=== PATIENT | female | born 1995 | race Caucasian/White ===

== ENCOUNTER → 2017-03-08 | Outpatient (CLI) | payer OTHER ==
[2017-03-08 18:38] LABS: BASO % 0.3 % (0.0-1.0); EOS % 0.6 % (0.0-3.0); LARGE UNSTAINED CELL # 0.1 K/mm3 (0.0-0.4); LARGE UNSTAINED CELL % 1.5 % (0.0-4.0); LYMPH % 29.9 % (24.0-44.0); MEAN CORPUSCULAR HGB CONC 32.9 g/dl (32.0-36.5); MEAN CORPUSCULAR VOLUME 91.2 fl (80.0-96.0); MONO # 0.5 K/mm3 (0.0-0.8); MONO % 7.9 % (0.0-5.0); NEUTROPHILS # 3.9 K/mm3 (1.8-7.7); NEUTROPHILS % 59.8 % (36.0-66.0); PLATELET COUNT, AUTOMATED 229 k/mm3 (150-450); RED CELL DISTRIBUTION WIDTH 13.1 % (11.5-14.5); WHITE BLOOD COUNT 6.5 K/mm3 (4.0-10.0)
[2017-03-10 11:17] LABS: HBsAg Prenatal NEGATIVE (NEGATIVE)
== END ==
LOC: M SMT 13:46
PROVIDERS: ATTEND Obstetrics & Gynecology
DX: Z34.81 Encounter for supervision of other normal pregnancy, first trimester (principal); Z36 Encounter for antenatal screening of mother; Z3A.00 Weeks of gestation of pregnancy not specified

== ENCOUNTER → 2017-05-28 | Outpatient (CLI) | payer OTHER ==
--- NOTE | 2017-05-28 16:11 | REP ---
COMPLETE OB ULTRASOUND WITH DETAILED ANATOMY SCREEN: 05/28/2017. CLINICAL HISTORY: Supervision of , normal second trimester, anatomy screen. FINDINGS: No comparison study available. By reported LMP she is 18 weeks 3 days, EDC 10/26/2017. There is a single intrauterine gestation in vertex presentation. Cervix is 3.6 cm long and closed. Amniotic fluid volume is visually normal. There is a posterior grade 0 placenta without previa or abruption. Biometry: BPD 4.3 cm 19 weeksHC 16.2 cm 19 weeksAC 13.3 cm 19 weeksFL 2.9 cm 19 weeksHL 2.8 cm 18 weeks 6 days This gives average ultrasound age 19 weeks, EDC 10/22/2017. Estimated weight 269 grams or 9 ounces, which is 70th percentile for dating based on LMP. This is normal interval growth. anatomy screen: Cranial vault was intact. Lateral ventricles are 9 mm in diameter, upper limits of normal. There are small bilateral choroid plexus cysts. The thalami, cavum septum pellucidum, cerebellum and cisterna magna, face and profile views, lungs, four-chamber view and the left ventricular outflow tract were unremarkable. The right ventricular outflow tract is not well defined due to position. There is a left-sided stomach bubble. Three-vessel cord and the cord insertion were normal. kidneys and bladder, transverse and longitudinal views of the spine and the upper and lower extremities were unremarkable. In the maternal right adnexa is a 3.3 cm mixed hyper- and hypoechoic lesion in this patient with a known fatty lesion by previous CT and MRI in the right ovary, and most consistent with dermoid. Impression: 1. Single intrauterine gestation in vertex presentation at 19 weeks by average ultrasound age, 18 weeks 3 days by LMP with EDC 10/26/2017. Normal interval growth. 2. Closed 3.6 cm long cervix, visually normal amniotic fluid volume and a posterior grade 0 placenta without previa abruption. 3. Borderline ventricular size but with bilateral choroid plexus cysts. This should be rechecked later in the second trimester. The right ventricular outflow tract could not be completely defined due to position. The anatomy screen is otherwise normal. 4. The maternal right ovary has a 3.3 cm complex lesion most consistent with ovarian dermoid that has been seen and evaluated by CT and MRI previously. Signed by Linwood Song MD 05/28/2017 05:09 P
== END ==
LOC: M RAD 14:08
PROVIDERS: ATTEND Obstetrics & Gynecology
DX: O36.8920 Maternal care for other specified fetal problems, second trimester, not applicable or unspecified (principal); Z36 Encounter for antenatal screening of mother; Z3A.19 19 weeks gestation of pregnancy

== ENCOUNTER → 2017-06-28 | Outpatient (CLI) | payer OTHER | LOC: M LAB 11:13 | PROVIDERS: ATTEND Advanced Practice Midwife | DX: O28.5 Abnormal chromosomal and genetic finding on antenatal screening of mother (principal); Z3A.00 Weeks of gestation of pregnancy not specified ==

== ENCOUNTER → 2017-08-04 | Outpatient (CLI) | payer OTHER ==
[2017-08-04 17:56] LABS: BASO % 0.2 % (0.0-1.0); EOS % 0.2 % (0.0-3.0); IMMATURE GRANULOCYTE % 0.7 % (0-0); LYMPH # 1.8 10^3/uL (1.5-6.5); LYMPH % 19.9 % (24.0-44.0); MEAN CORPUSCULAR HEMOGLOBIN 29.9 pg (27.0-33.0); MEAN CORPUSCULAR HGB CONC 33.2 g/dl (32.0-36.5); MEAN CORPUSCULAR VOLUME 89.9 fl (80.0-96.0); MONO # 0.6 10^3/uL (0.0-0.8); MONO % 7.2 % (0.0-5.0); NEUTROPHILS # 6.3 10^3/uL (1.8-7.7); NEUTROPHILS % 71.8 % (36.0-66.0); PLATELET COUNT, AUTOMATED 215 10^3/uL (150-450); RED CELL DISTRIBUTION WIDTH 13.4 % (11.5-14.5); WHITE BLOOD COUNT 8.8 10^3/uL (4.0-10.0)
== END ==
LOC: M LAB 15:17
PROVIDERS: ATTEND Advanced Practice Midwife
DX: Z36.89 Encounter for other specified antenatal screening (principal); Z3A.00 Weeks of gestation of pregnancy not specified
CPT/HCPCS: 36415; 82950; 85025; 86850; 86900; 86901; J2790

== ENCOUNTER → 2017-08-16 | Outpatient (CLI) | payer OTHER | LOC: M LAB 07:22 | PROVIDERS: ATTEND Obstetrics & Gynecology | DX: Z34.83 Encounter for supervision of other normal pregnancy, third trimester (principal) ==

== ENCOUNTER → 2017-09-29 | Outpatient (REF) | payer OTHER | LOC: M LAB REF 17:13 | DX: Z34.83 Encounter for supervision of other normal pregnancy, third trimester (principal) ==

== ENCOUNTER 2017-10-19 05:16 | Inpatient (IN) | payer OTHER ==
[2017-10-19] MEDS: CEFAZOLIN SOD 1 GM in APPROPRIATE DILUENT 1 EA IV (06:00)
[2017-10-19] MEDS: LR 800 ML IV (06:00)
[2017-10-19 06:51] LABS: BASO % 0.3 % (0.0-1.0); EOS # 0.1 10^3/uL (0.0-0.50); EOS % 0.4 % (0.0-3.0); HEMATOCRIT 36.8 % (36.0-47.0); HEMOGLOBIN 12.4 g/dl (12.0-16.0); IMMATURE GRANULOCYTE # 0.1 10^3/uL (0-0); IMMATURE GRANULOCYTE % 0.9 % (0-0); LYMPH # 2.3 10^3/uL (1.5-6.5); MEAN CORPUSCULAR HEMOGLOBIN 29.7 pg (27.0-33.0); MEAN CORPUSCULAR HGB CONC 33.7 g/dl (32.0-36.5); MONO # 0.9 10^3/uL (0.0-0.8); MONO % 8.1 % (0.0-5.0); NEUTROPHILS # 8.2 10^3/uL (1.8-7.7); NEUTROPHILS % 70.3 % (36.0-66.0); PLATELET COUNT, AUTOMATED 214 10^3/uL (150-450); RED BLOOD COUNT 4.18 10^6/uL (4.00-5.40); RED CELL DISTRIBUTION WIDTH 14.1 % (11.5-14.5); WHITE BLOOD COUNT 11.6 10^3/uL (4.0-10.0)
[2017-10-19] MEDS: LR 1,000 ML IV ×4 (07:41→17:21)
[2017-10-19] MEDS: BICITRA 30ML SOLN UDC PO (07:41)
[2017-10-19] MEDS ORDERED: KETOROLAC 60 MG/2 ML VIAL (J1885) As Ordered (08:34)
[2017-10-19] MEDS ORDERED: ONDANSETRON 4MG/2ML VIAL (J2405) As Ordered (08:34)
[2017-10-19] MEDS ORDERED: MORPHINE PRES-FREE INJ 10 MG/10 ML VIAL (J2274) As Ordered (08:34)
[2017-10-19] MEDS ORDERED: OXYTOCIN INJ 10 UNITS/ML VIAL (J2590) As Ordered (08:34)
[2017-10-19] MEDS ORDERED: PHENYLephrine HCL 500 MCG/5 ML (100MCG/ML) SYRINGE (J2370) As Ordered (08:34)
[2017-10-19] MEDS ORDERED: RHOGAM 300 MCG (1500 IU) INJ (J2790) IM (09:30)
[2017-10-19] MEDS ORDERED: ONDANSETRON 4MG/2ML VIAL (J2405) IV ×2 (09:30)
[2017-10-19] MEDS ORDERED: MEASLES,MUMPS,RUBELLA VACCINE INJ (MMR-II) (90707) SC (09:30)
[2017-10-19] MEDS ORDERED: fentaNYL 100 MCG/2 ML INJECTION (J3010) IV (09:30)
[2017-10-19] MEDS: OXYTOCIN DRIP 30 UNITS in APPROPRIATE DILUENT 1 EA IV (09:30)
[2017-10-19] MEDS ORDERED: NALBUPHINE HCL 10 MG/ML AMP (J2300) IV (09:30)
[2017-10-19] MEDS: KETOROLAC 30 MG/ML VIAL (J1885) IV ×2 (15:11→20:32)
[2017-10-19] MEDS: DOCUSATE SODIUM 100 MG CAP PO (20:32)
[2017-10-20] MEDS: LR 1,000 ML IV ×2 (01:21→09:21)
[2017-10-20] MEDS: KETOROLAC 30 MG/ML VIAL (J1885) IV ×2 (03:03→08:46)
[2017-10-20 06:58] LABS: HEMATOCRIT 30.6 % (36.0-47.0); MEAN CORPUSCULAR HEMOGLOBIN 29.4 pg (27.0-33.0); PLATELET COUNT, AUTOMATED 175 10^3/uL (150-450); RED BLOOD COUNT 3.44 10^6/uL (4.00-5.40); RED CELL DISTRIBUTION WIDTH 14.1 % (11.5-14.5)
[2017-10-20 07:03] LABS: HEMOGLOBIN 10.1 g/dl (12.0-16.0)
[2017-10-20] MEDS: PRENATAL VITAMINS CHEWABLE TABLET PO (08:45)
[2017-10-20] MEDS ORDERED: INFLUENZA QUADRIVALENT PF VACCINE 0.5ML SYRINGE (90686) IM (09:00)
[2017-10-20] MEDS: PERCOCET 5MG/325MG TAB PO ×3 (13:41→22:54)
[2017-10-20] MEDS: IBUPROFEN 800 MG TAB PO (17:13)
[2017-10-20] MEDS: DOCUSATE SODIUM 100 MG CAP PO (19:29)
[2017-10-21] MEDS: IBUPROFEN 800 MG TAB PO ×3 (00:24→17:33)
[2017-10-21] MEDS: PERCOCET 5MG/325MG TAB PO ×3 (04:38→16:06)
[2017-10-21] MEDS: INFLUENZA QUADRIVALENT PF VACCINE 0.5ML SYRINGE (90686) IM (07:24)
[2017-10-21] MEDS: PRENATAL VITAMINS CHEWABLE TABLET PO (08:04)
== END 2017-10-21 17:35 | disposition home or self-care (01) | DRG 766 ==
LOC: M LDI 05:16 → M OBS 10:55
PROVIDERS: Specialist
PROC: 10D00Z1 Extraction of Products of Conception, Low, Open Approach (ICD-10-PCS; principal; 2017-10-19 07:30)
PROC: 0UB00ZX Excision of Right Ovary, Open Approach, Diagnostic (ICD-10-PCS; 2017-10-19 07:30)
DX: O32.1XX0 Maternal care for breech presentation, not applicable or unspecified (principal); O26.893 Other specified pregnancy related conditions, third trimester; Z3A.39 39 weeks gestation of pregnancy; D27.9 Benign neoplasm of unspecified ovary; Z37.0 Single live birth

== ENCOUNTER → 2018-01-21 | Outpatient (REF) | payer OTHER | LOC: M LAB REF 15:19 | DX: L82.1 Other seborrheic keratosis (principal) | CPT/HCPCS: 88305 ==

== ENCOUNTER → 2019-04-21 | Outpatient (CLI) | payer OTHER ==
[~2019-04-21] MED LIST: COLA100C5 PO; IBUP80TA PO; OXYC1TAB23 PO; PREN1TAB20 PO; PREN29TA4 PO
[2019-04-21 10:05] LABS: BASO % 0.3 % (0.0-1.0); EOS # 0.1 10^3/uL (0.0-0.50); EOS % 0.9 % (0.0-3.0); HEMATOCRIT 37.6 % (36.0-47.0); HEMOGLOBIN 12.7 g/dl (12.0-15.5); LYMPH # 2.1 10^3/uL (1.5-6.5); LYMPH % 31.7 % (24.0-44.0); MEAN CORPUSCULAR HEMOGLOBIN 29.5 pg (27.0-33.0); MEAN CORPUSCULAR HGB CONC 33.8 g/dl (32.0-36.5); MEAN CORPUSCULAR VOLUME 87.2 fl (80.0-96.0); MONO # 0.5 10^3/uL (0.0-0.8); MONO % 7.7 % (0.0-5.0); NEUTROPHILS # 3.8 10^3/uL (1.8-7.7); NEUTROPHILS % 58.9 % (36.0-66.0); PLATELET COUNT, AUTOMATED 219 10^3/uL (150-450); RED BLOOD COUNT 4.31 10^6/uL (4.00-5.40); WHITE BLOOD COUNT 6.5 10^3/uL (4.0-10.0)
[2019-04-21 11:38] LABS: CHLAMYDIA DNA AMPLIFICATION NEGATIVE (NEGATIVE); GC DNA AMPLIFICATION NEGATIVE (NEGATIVE)
[2019-04-21 13:50] LABS: HEPATITIS C VIRUS ABY INDEX 0.1 INDEX (<0.8); HIV 1&2 SCREEN CENTAUR NEGATIVE (NEGATIVE); RUBELLA IgG QUALITATIVE IMMUNE (IMMUNE)
== END ==
LOC: M SMT 08:53
PROVIDERS: ATTEND Obstetrics & Gynecology
DX: Z34.81 Encounter for supervision of other normal pregnancy, first trimester (principal); Z3A.09 9 weeks gestation of pregnancy

== ENCOUNTER 2019-06-02 19:09 | Emergency (ER) | payer OTHER ==
[~2019-06-02] VITALS: Ht 165.1 cm; Wt 59.1 kg
[~2019-06-02 19:09] MED LIST changes: -PREN29TA4 PO
[2019-06-02 19:11] VITALS: BP 127/91
[2019-06-02] MEDS ORDERED: PREN29TA4 PO (19:20)
== END 2019-06-02 22:19 | disposition home or self-care (01) ==
LOC: MERGE 19:09 → M ED 19:09
DX: O9A.212 Injury, poisoning and certain other consequences of external causes complicating pregnancy, second trimester (principal); S13.4XXA Sprain of ligaments of cervical spine, initial encounter; V49.9XXA Car occupant (driver) (passenger) injured in unspecified traffic accident, initial encounter; Y92.410 Unspecified street and highway as the place of occurrence of the external cause; Z3A.15 15 weeks gestation of pregnancy

== ENCOUNTER → 2019-06-20 | Outpatient (CLI) | payer OTHER ==
[~2019-06-20] MED LIST changes: +PREN29TA4 PO
--- NOTE | 2019-06-20 19:13 | REP ---
HISTORY: anatomy. COMPARISON: No pertinent priors. Multiple ultrasonographic images of the gravid uterus show a single living intrauterine gestation in a kelly breech presentation. Doppler interrogation of the heart shows a heart rate of 158 beats per minute. The placenta is posterior and not low lying. The subjective amniotic fluid volume is within normal limits. The cervix measures 3.6 cm in length and is closed. Evaluation of the maternal adnexal spaces showed no abnormalities. Structures visualized as unremarkable are as follows: Thalami, cavum septum pellucidum, cerebellum, cisterna magna, cerebral ventricles, spine, kidneys, urinary bladder, stomach, cord insertion, three vessel umbilical cord, upper and lower extremities, four chamber heart, right and left ventricular outflow tracts, and facial feature. BPD 4.1 cm = 18 weeks 2 days HC 15.4 cm = 18 weeks 2 days AC 13.4 cm = 18 weeks 6 days FL 2.8 cm = 18 weeks 4 days The estimated weight is 250 grams, which is at the 60th percentile for an 18 week 2 days gestational age. IMPRESSION: Single living intrauterine gestation as described above with an estimated gestational age of 18 weeks 4 days via composite criteria and an estimated date of delivery of 11/17/2019 by today's exam. No anomalies were detected. Electronically Signed by Kang Veronica DO 06/20/2019 07:46 P
== END ==
LOC: M RAD 16:49
PROVIDERS: ATTEND Specialist
DX: O32.1XX0 Maternal care for breech presentation, not applicable or unspecified (principal); Z36.89 Encounter for other specified antenatal screening; Z3A.18 18 weeks gestation of pregnancy

== ENCOUNTER → 2019-08-26 | Outpatient (CLI) | payer OTHER, BC ==
[2019-08-26 13:36] LABS: BASO % 0.1 % (0.0-1.0); EOS # 0.1 10^3/uL (0.0-0.5); EOS % 0.7 % (0.0-3.0); HEMATOCRIT 35.3 % (36.0-47.0); HEMOGLOBIN 11.6 g/dl (12.0-15.5); LYMPH # 1.8 10^3/uL (1.5-5.0); LYMPH % 20.9 % (24.0-44.0); MEAN CORPUSCULAR HEMOGLOBIN 30.2 pg (27.0-33.0); MEAN CORPUSCULAR HGB CONC 32.9 g/dl (32.0-36.5); MEAN CORPUSCULAR VOLUME 91.9 fl (80.0-96.0); MONO # 0.6 10^3/uL (0.0-0.8); MONO % 6.5 % (0.0-5.0); NEUTROPHILS % 71.1 % (36.0-66.0); PLATELET COUNT, AUTOMATED 199 10^3/uL (150-450); RED BLOOD COUNT 3.84 10^6/uL (4.00-5.40); WHITE BLOOD COUNT 8.5 10^3/uL (4.0-10.0)
== END ==
LOC: M WUC 09:40
PROVIDERS: ATTEND Specialist
DX: Z34.82 Encounter for supervision of other normal pregnancy, second trimester (principal)
CPT/HCPCS: 36415; 82950; 85025; 86850; 86900; 86901; J2790

== ENCOUNTER → 2019-08-29 | Outpatient (REF) | payer OTHER | LOC: M PLALAB 20:45 | PROVIDERS: ATTEND Specialist | DX: Z34.82 Encounter for supervision of other normal pregnancy, second trimester (principal) ==

== ENCOUNTER → 2019-09-15 | Outpatient (CLI) | payer BC, OTHER | LOC: M LAB 08:03 | PROVIDERS: ATTEND Specialist | DX: Z34.82 Encounter for supervision of other normal pregnancy, second trimester (principal); Z3A.00 Weeks of gestation of pregnancy not specified ==

== ENCOUNTER → 2019-10-23 | Outpatient (REF) | payer OTHER | LOC: M SFHCWAGY 17:01 | PROVIDERS: ATTEND Specialist | DX: Z36.85 Encounter for antenatal screening for Streptococcus B (principal) ==

== ENCOUNTER → 2019-10-30 | Outpatient (CLI) | payer OTHER ==
[2019-10-30 13:40] LABS: HEMATOCRIT 36.2 % (36.0-47.0); MEAN CORPUSCULAR HEMOGLOBIN 29.8 pg (27.0-33.0); MEAN CORPUSCULAR HGB CONC 33.1 g/dl (32.0-36.5); MEAN CORPUSCULAR VOLUME 89.8 fl (80.0-96.0); PLATELET COUNT, AUTOMATED 238 10^3/uL (150-450); RED BLOOD COUNT 4.03 10^6/uL (4.00-5.40); WHITE BLOOD COUNT 10.4 10^3/uL (4.0-10.0)
[2019-10-30 14:02] LABS: TOTAL PROTEIN,RANDOM URINE 25.5 MG/DL (0.0-12.0)
[2019-10-30 14:03] LABS: ALT/SGPT 21 U/L (12-78); BILIRUBIN,TOTAL 0.2 MG/DL (0.2-1.0); CREATININE FOR GFR 0.44 MG/DL (0.55-1.30); GLOMERULAR FILTRATION RATE > 60.0 (>60); LDH LACTATE DEHYDROGENASE 175 U/L (84-246)
== END ==
LOC: M PLALAB 12:13
PROVIDERS: ATTEND Advanced Practice Midwife
DX: O16.3 Unspecified maternal hypertension, third trimester (principal); Z3A.00 Weeks of gestation of pregnancy not specified

== ENCOUNTER 2019-11-07 05:41 | Inpatient (IN) | payer BC, OTHER ==
[2019-11-07] VITALS (8 sets, daily range): BP systolic 109–139; BP diastolic 55–94
[~2019-11-07] VITALS: Ht 165.1 cm; Wt 73.6 kg
[~2019-11-07 05:41] MED LIST changes: +PRENTAB9 PO
[2019-11-07] MEDS ORDERED: LACTATED RINGER'S 1000 ML IV STA (05:44)
[2019-11-07] MEDS ORDERED: BICITRA 30ML SOLN UDC PO ONE (05:45)
[2019-11-07] MEDS: ceFAZolin SOD 2 GM in IV 1 EA IV ONE ×2 (05:45→07:48)
[2019-11-07 06:23] LABS: MEAN CORPUSCULAR HEMOGLOBIN 29.5 pg (27.0-33.0); MEAN CORPUSCULAR HGB CONC 33.3 g/dl (32.0-36.5); MEAN CORPUSCULAR VOLUME 88.5 fl (80.0-96.0); PLATELET COUNT, AUTOMATED 297 10^3/uL (150-450); RED BLOOD COUNT 4.07 10^6/uL (4.00-5.40)
[2019-11-07] MEDS ORDERED: MORPHINE PRES-FREE INJ 10 MG/10 ML VIAL (J2274) As Ordered ONE (07:14)
[2019-11-07] MEDS ORDERED: OXYTOCIN 30 UNITS IN 0.9% NaCl 500ML IV BAG (J2590) As Ordered ONE ×3 (07:15→09:15)
[2019-11-07] MEDS ORDERED: ONDANSETRON 4MG/2ML VIAL (J2405) As Ordered ONE (07:29)
[2019-11-07] MEDS ORDERED: METOCLOPRAMIDE INJ 10MG/2ML VIAL (J2765) As Ordered ONE (07:30)
[2019-11-07] MEDS ORDERED: NALBUPHINE HCL 10 MG/ML AMP (J2300) IV PRN ×2 (07:44→09:00)
[2019-11-07] MEDS ORDERED: METOCLOPRAMIDE INJ 10MG/2ML VIAL (J2765) IV PRN (07:44)
[2019-11-07] MEDS ORDERED: ONDANSETRON 4MG/2ML VIAL (J2405) IV PRN ×2 (07:44→08:45)
[2019-11-07] MEDS ORDERED: NALOXONE INJ 0.4 MG/1 ML VIAL (J2310) IV PRN ×2 (07:44)
[2019-11-07] MEDS ORDERED: diphenhydrAMINE INJ 50MG/ML VIAL (J1200) IV PRN (07:44)
[2019-11-07] MEDS ORDERED: dexameTHASONE 4 MG/ML 1ML VIAL (J1100) As Ordered ONE (07:53)
[2019-11-07] MEDS ORDERED: ePHEDrine SULFATE 25 MG/5 ML(5MG/ML) SYRINGE As Ordered ONE (08:10)
[2019-11-07] MEDS ORDERED: PHENYLephrine HCL 500 MCG/5 ML (100MCG/ML) SYRINGE (J2370) As Ordered ONE (08:10)
[2019-11-07] MEDS ORDERED: KETOROLAC 60 MG/2 ML VIAL (J1885) As Ordered ONE (08:20)
--- NOTE | 2019-11-07 08:39 | HPE ---
DATE OF ADMISSION: 11/07/2019 24-year-old, 2, para 1 female at 37 and 6/7 weeks gestation by last menstrual period and consistent with 10-week ultrasound, estimated date of confinement (EDC) of 11/19/2019, presents for repeat section. INDICATION FOR DELIVERY: Less than 39 weeks, gestational hypertension. She denies contractions or vaginal bleeding. COURSE: The patient initiated care at 9 weeks gestation, 04/21/2019. Her first trimester blood pressure was 102/62. At 36 weeks gestation she developed significant hypertension, blood pressure 140/90 range, pressures would go even higher when she was at home and moving around. She declined trial of labor after section (TOLAC) after realizing that she would have to undergo labor induction. She been considering TOLAC prior to elevated blood pressures. OBSTETRICAL HISTORY: October 2017, 39 section, 8 pounds 6 ounce female , indication was breech presentation. MEDICAL HISTORY: None. SURGICAL HISTORY: 1. section. 2. Right ovarian cystectomy for a dermoid at the time of section. 3. Cholecystectomy. ALLERGIES: None. SOCIAL HISTORY: The patient is . She lives in [place]. She denies cigarettes, alcohol or drug use. FAMILY HISTORY: Noncontributory. PHYSICAL EXAMINATION: VITAL SIGNS: Blood pressure 132/90, pulse 99, temperature 97.6. No apparent distress. Head and neck examination normal. Lungs are clear. Heart has regular rate and rhythm. Abdomen is nontender, gravid. heart tones category 1, contractions irregular. Extremities are nontender. LABORATORIES: Blood type is O-, Rubella immune. RPR nonreactive. Hepatitis B and C negative. HIV negative. ASSESSMENT: 24-year-old 2, para 1 at 37 6/7 weeks gestation who presents for repeat section. The patient is diagnosed with gestational hypertension. PLAN: The patient is admitted on 11/07/2019.
[2019-11-07] MEDS ORDERED: OXYTOCIN DRIP 30 UNITS in IV 1 EA IV SCH (08:41)
[2019-11-07] MEDS ORDERED: ONDANSETRON 4 MG TAB (S0181) PO PRN (08:45)
[2019-11-07] MEDS ORDERED: PERCOCET 5MG/325MG TAB PO PRN (08:45)
[2019-11-07] MEDS ORDERED: RHOGAM 300 MCG (1500 IU) INJ (J2790) IM SCH (08:45)
[2019-11-07] MEDS ORDERED: OXYC1TAB23 PO (08:47)
[2019-11-07] MEDS ORDERED: fentaNYL 100 MCG/2 ML INJECTION (J3010) IV PRN (09:00)
[2019-11-07] MEDS: PRENATAL VITAMINS CHEWABLE TABLET PO SCH (09:00)
[2019-11-07] MEDS: MEASLES,MUMPS,RUBELLA VACCINE INJ (MMR-II) (90707) SC SCH ×2 (09:18→09:34)
[2019-11-07] MEDS: LR 1,000 ML IV SCH ×3 (09:43→23:50)
[2019-11-07] MEDS ORDERED: MAPA500T2 PO (09:52)
[2019-11-07] MEDS: PERCOCET 5MG/325MG TAB PO PRN (11:20)
[2019-11-07] MEDS: KETOROLAC 30 MG/ML VIAL (J1885) IV SCH ×2 (13:59→19:58)
--- NOTE | 2019-11-07 17:13 | RO ---
DATE OF PROCEDURE: 11/07/2019 PREOPERATIVE DIAGNOSIS: 38 week, prior , gestational hypertension. POSTOPERATIVE DIAGNOSIS: 38 week, prior , gestational hypertension. PROCEDURE: Repeat low transverse section. SURGEON: Eric Schultz MD SOAP MAKER: Paz Brody CNM ANESTHESIA: Spinal. ESTIMATED BLOOD LOSS: 500 mL. URINE OUTPUT: 175 mL. FINDINGS: 3740 gram or 8 pound 4 ounce female infant with scores of 9 and 9, vertex, normal uterus, fallopian tubes and ovaries. OPERATIVE SUMMARY: The patient was taken to the operating room where spinal anesthesia was induced. She was prepped and draped in a sterile fashion in supine position. A Romano catheter was placed. A Pfannenstiel skin incision was made with a scalpel and carried through to the fascia. The fascia was nicked and extended. The fascia was dissected off the rectus muscles. The peritoneal cavity was entered. A Mobius retractor was placed. A bladder flap was created. A curvilinear incision was made in the lower uterine segment until clear fluid was noted. This was extended manually. The was delivered in the vertex position without difficulty. The cord was doubly clamped and cut. The was handed off to the awaiting nurse. The placenta was expressed. The uterus was exteriorized and cleared of clots and debris. The uterine incision was closed with #0 Vicryl in a running fashion. A second imbricating layer of #0 Vicryl was placed. The Mobius was removed. The peritoneum was closed with #2-0 Vicryl in a running fashion. The fascia was closed with #0 Vicryl in a running fashion. The deep layer was irrigated. The skin was closed with #4-0 Monocryl subcuticular sutures. Sponge, instrument, and needle counts were correct. Paz Brody CNM assisted throughout the procedure from beginning to end. She helped create each layer of the incision. She also delivered the fetus and closed all layers. She was indispensable to the success of the performance of the procedure.
[2019-11-07] MEDS: DOCUSATE SODIUM 100 MG CAP PO PRN (19:58)
[2019-11-08] MEDS: PERCOCET 5MG/325MG TAB PO PRN ×4 (01:48→15:40)
[2019-11-08 02:00] VITALS: BP 114/68
[2019-11-08] MEDS: KETOROLAC 30 MG/ML VIAL (J1885) IV SCH (02:03)
[2019-11-08 06:00] VITALS: BP 118/69
[2019-11-08 07:24] LABS: HEMATOCRIT 30.5 % (36.0-47.0); HEMOGLOBIN 10.1 g/dl (12.0-15.5); MEAN CORPUSCULAR HEMOGLOBIN 29.8 pg (27.0-33.0); MEAN CORPUSCULAR HGB CONC 33.1 g/dl (32.0-36.5); PLATELET COUNT, AUTOMATED 237 10^3/uL (150-450); RED BLOOD COUNT 3.39 10^6/uL (4.00-5.40); WHITE BLOOD COUNT 9.4 10^3/uL (4.0-10.0)
[2019-11-08 10:04] VITALS: BP 112/64
[2019-11-08] MEDS: PRENATAL VITAMINS CHEWABLE TABLET PO SCH (10:15)
[2019-11-08] MEDS: IBUPROFEN 800 MG TAB PO SCH ×2 (10:15→17:32)
[2019-11-08 14:05] VITALS: BP 106/63
[2019-11-08 18:02] VITALS: BP 120/78
[2019-11-08] MEDS: DOCUSATE SODIUM 100 MG CAP PO PRN (21:54)
[2019-11-08 22:00] VITALS: BP 136/84
[2019-11-09 02:00] VITALS: BP 123/75
[2019-11-09] MEDS: IBUPROFEN 800 MG TAB PO SCH ×2 (02:02→10:07)
[2019-11-09] MEDS: PERCOCET 5MG/325MG TAB PO PRN ×2 (04:15→08:16)
[2019-11-09 06:00] VITALS: BP 128/65
--- NOTE | 2019-11-09 07:01 | DSES ---
DATE OF ADMISSION: 11/07/2019 DATE OF DISCHARGE: 11/09/2019 DISCHARGE DIAGNOSES: 1. Repeat section postoperative day 2. 2. Gestational hypertension, stable for discharge. HISTORY: Isadora is 24-year-old, 2, para 2-0-0-2 now, who underwent a repeat section on 11/07/2019 at less than 39 weeks due to gestational hypertension with surgeon Dr. Eric Schultz, account assistant Paz Brody. Her surgery was uncomplicated. She had an estimated blood loss of 500 mL. She delivered a female weighing 3740 grams, 8 pounds 4 ounces, 9 and 9. Her postoperative course has been uncomplicated. She has been out of bed for self care, anamika care and care. Her pain has been well controlled with by mouth pain medication. She is voiding without difficulty and passing flatus. The patient does request discharge to home today. OBJECTIVE: Temperature 98.8, pulse 74, respirations 18, blood pressure (BP) 128/65. Preoperative CBC with a hemoglobin of 12.0, hematocrit 36.0 and platelets 297. Postoperative CBC with a hemoglobin 10.1, hematocrit 30.5 and platelets 237. Her breasts are soft, nontender. Nipples intact. No cracks. No bleeding. Fundus firm at one fingerbreadth below umbilicus. Incision with dressing intact. There is no new drainage. The perineum is intact. Lochia rubra scant. PLAN: Discharge the patient home today. [facility], for a 2-week incision check with Dr. Schultz as well as an 8-week visit with Dr. Schultz. I did review discharge instructions that include breast care, incision care, anamika care, pelvic rest, activity and lifting restrictions, and danger signs to report to her provider, as well as, access to care The patient's questions have been answered and she desires to be discharged. edited: 11/10/2019 0710 tkf PHIL
[2019-11-09] MEDS: PRENATAL VITAMINS CHEWABLE TABLET PO SCH (08:16)
[2019-11-09] MEDS ORDERED: ADACEL/BOOSTRIX VACCINE (DIPHTH/PERTUSS/ACELL/TETANUS)0.5ML SYR (90715) IM ONE (09:45)
[2019-11-09] MEDS ORDERED: DOCU100C16 PO (10:29)
[2019-11-09] MEDS ORDERED: IBUP80TA PO (10:29)
== END 2019-11-09 10:45 | disposition home or self-care (01) | DRG 540 ==
LOC: M LDI 05:41 → M OBS 10:17
PROVIDERS: ADMIT Specialist; ATTEND Specialist
PROC: 10D00Z1 Extraction of Products of Conception, Low, Open Approach (ICD-10-PCS; principal; 2019-11-07 07:30)
DX: O13.4 Gestational [pregnancy-induced] hypertension without significant proteinuria, complicating childbirth (principal); Z3A.37 37 weeks gestation of pregnancy; Z37.0 Single live birth; O34.211 Maternal care for low transverse scar from previous cesarean delivery

== ENCOUNTER 2019-11-17 23:46 | Emergency (ER) | payer BC, OTHER ==
[~2019-11-17] VITALS: Ht 165.1 cm; Wt 63.8 kg
[~2019-11-17 23:46] MED LIST changes: +DOCU100C16 PO; +MAPA500T2 PO
[2019-11-17] MEDS ORDERED: ACET-683 PO (23:54)
[2019-11-18] MEDS ORDERED: NS 1,000 ML IV ONE (01:00)
[2019-11-18] MEDS ORDERED: ONDANSETRON 4MG/2ML VIAL (J2405) IV ONE (01:00)
[2019-11-18 01:18] LABS: BASO % 0.1 % (0.0-1.0); BLOOD UREA NITROGEN 25 MG/DL (7-18); CALCIUM LEVEL 7.9 MG/DL (8.5-10.1); CARBON DIOXIDE LEVEL 18 MEQ/L (21-32); CHLORIDE LEVEL 110 MEQ/L (98-107); CREATININE FOR GFR 0.83 MG/DL (0.55-1.30); EOS % 0.3 % (0.0-3.0); GLOMERULAR FILTRATION RATE > 60.0 (>60); GLUCOSE, FASTING 109 MG/DL (70-100); HEMATOCRIT 42.5 % (36.0-47.0); HEMOGLOBIN 14.1 g/dl (12.0-15.5); LYMPH # 0.5 10^3/uL (1.5-5.0); LYMPH % 6.2 % (24.0-44.0); MEAN CORPUSCULAR HGB CONC 33.2 g/dl (32.0-36.5); MEAN CORPUSCULAR VOLUME 87.4 fl (80.0-96.0); MONO # 0.1 10^3/uL (0.0-0.8); MONO % 1.3 % (0.0-5.0); NEUTROPHILS % 91.6 % (36.0-66.0); PLATELET COUNT, AUTOMATED 255 10^3/uL (150-450); POTASSIUM SERUM 3.3 MEQ/L (3.5-5.1); RED BLOOD COUNT 4.86 10^6/uL (4.00-5.40); SODIUM LEVEL 138 MEQ/L (136-145); WHITE BLOOD COUNT 7.6 10^3/uL (4.0-10.0)
[2019-11-18] MEDS ORDERED: ACETAMINOPHEN TAB 650MG DOSE (2X325MG) PO ONE (03:00)
[2019-11-18] MEDS ORDERED: LR 1,000 ML IV ONE (04:15)
[2019-11-18] MEDS ORDERED: KETOROLAC 30 MG/ML VIAL (J1885) IV ONE (04:30)
[2019-11-18] MEDS ORDERED: ONDA4TAB6 PO (06:02)
[2019-11-18 06:10] VITALS: BP 105/62
== END 2019-11-18 06:15 | disposition home or self-care (01) ==
LOC: M ED 23:46
DX: K52.9 Noninfective gastroenteritis and colitis, unspecified (principal); Z79.899 Other long term (current) drug therapy
CPT/HCPCS: 80048; 85025; 96361; 96374; 96375; 99284; J1885; J2405

== ENCOUNTER → 2020-06-10 | Outpatient (REF) | payer BC, OTHER ==
[~2020-06-10] MED LIST changes: +ACET-683 PO; +ONDA4TAB6 PO
== END ==
LOC: M SFHCPLAZ 09:58
PROVIDERS: ATTEND Family Medicine
DX: R30.0 Dysuria (principal)

== ENCOUNTER → 2020-09-05 | Outpatient (REF) | payer OTHER | LOC: M LAB REF 12:53 | PROVIDERS: ATTEND Physician Assistant | DX: J02.9 Acute pharyngitis, unspecified (principal) ==

== ENCOUNTER → 2021-05-29 | Outpatient (CLI) | payer BC, OTHER | LOC: M LABSMTC 11:21 | PROVIDERS: ATTEND Pediatrics | DX: Z11.52 Encounter for screening for COVID-19 (principal); Z20.822 Contact with and (suspected) exposure to COVID-19 | CPT/HCPCS: C9803; U0003 ==

== ENCOUNTER → 2021-07-06 | Outpatient (CLI) | payer BC, OTHER ==
[2021-07-06 10:04] LABS: HEMATOCRIT 37.9 % (36.0-47.0); HEMOGLOBIN 12.6 g/dl (12.0-15.5); MEAN CORPUSCULAR HEMOGLOBIN 29.2 pg (27.0-33.0); MEAN CORPUSCULAR HGB CONC 33.2 g/dl (32.0-36.5); MEAN CORPUSCULAR VOLUME 87.9 fl (80.0-96.0); PLATELET COUNT, AUTOMATED 230 10^3/uL (150-450); RED BLOOD COUNT 4.31 10^6/uL (4.00-5.40); WHITE BLOOD COUNT 7.7 10^3/uL (4.0-10.0)
[2021-07-06 11:50] LABS: GC DNA AMPLIFICATION NEGATIVE (NEGATIVE)
[2021-07-07 10:47] LABS: HEPATITIS C VIRUS ABY INDEX < 0.0 INDEX (<0.8); HIV 1&2 SCREEN CENTAUR NEGATIVE (NEGATIVE)
== END ==
LOC: M LAB 09:36
PROVIDERS: ATTEND Specialist
DX: Z34.81 Encounter for supervision of other normal pregnancy, first trimester (principal); Z3A.00 Weeks of gestation of pregnancy not specified

== ENCOUNTER → 2021-07-24 | Outpatient (CLI) | payer BC ==
--- NOTE | 2021-07-24 14:22 | REP ---
INDICATION: ANATOMY. COMPARISON: None. TECHNIQUE: Second trimester OB anatomy screening ultrasound protocol FINDINGS: Scanning demonstrates a viable single intrauterine gestation in a cephalic lie. motion is observed and heart rate is recorded at 157 beats per minute. A fundal left lateral, grade zero placenta is seen without evidence of previa. Umbilical cord has mid insertion. Amniotic fluid is subjectively normal. Closed cervical length is measured at 3.5 cm transabdominally. No extrauterine abnormality is observed. There has been appropriate interval growth. No anomaly is seen. The following anatomic structures are identified and felt to be sonographically unremarkable: cranium, choroid plexus, cavum, cerebellum and posterior fossa, face and profile, lungs, four-chamber heart with left and right ventricular outflow tract views, diaphragm, left-sided stomach, abdominal wall cord insertion, three-vessel umbilical cord, kidneys and bladder, spine, and upper and lower extremities. Biometry chart: BPD 5.0 cm; 21 weeks 2 days Head circumference 18 point cm; 21 weeks 1 days Abdominal circumference 15.3 cm; 20 weeks 4 days Femur length 3.3 cm; 20 weeks 3 days Humeral length 3.3 cm; 21 weeks 0 days HC/AC ratio normal 1.23 Cephalic index normal 0.74 Estimated weight 363 grams, 0 pounds 12 ounces, 77th percentile for 20 weeks 0 days. IMPRESSION: Viable single intrauterine gestation at 20 weeks 6 days by today's composite sonographic criteria. Expected gestational age estimate based on DAREN is 20 weeks is 0 days. DAREN by prior sonography 12/11/2021. No anomaly. <Electronically signed by Linwood Song > 07/24/21 [id number]
== END ==
LOC: M WHC 10:21
PROVIDERS: ATTEND Specialist
DX: Z36.9 Encounter for antenatal screening, unspecified (principal); Z3A.20 20 weeks gestation of pregnancy

== ENCOUNTER → 2021-09-11 | Outpatient (CLI) | payer BC, OTHER ==
[2021-09-11 13:43] LABS: HEMATOCRIT 35.6 % (36.0-47.0); HEMOGLOBIN 11.4 g/dl (12.0-15.5); MEAN CORPUSCULAR HEMOGLOBIN 28.6 pg (27.0-33.0); MEAN CORPUSCULAR VOLUME 89.2 fl (80.0-96.0); PLATELET COUNT, AUTOMATED 205 10^3/uL (150-450); RED BLOOD COUNT 3.99 10^6/uL (4.00-5.40); WHITE BLOOD COUNT 8.6 10^3/uL (4.0-10.0)
== END ==
LOC: M PLALAB 08:49
PROVIDERS: ATTEND Specialist
DX: Z34.82 Encounter for supervision of other normal pregnancy, second trimester (principal)
CPT/HCPCS: 36415; 82950; 85027; 86850; 86900; 86901; J2790

== ENCOUNTER → 2021-11-11 | Outpatient (REF) | payer OTHER, BC | LOC: M SFHCWAGY 10:05 | PROVIDERS: ATTEND Specialist | DX: Z34.83 Encounter for supervision of other normal pregnancy, third trimester (principal) ==

== ENCOUNTER → 2021-11-29 | Outpatient (CLI) | payer BC, OTHER ==
[~2021-11-29] MED LIST changes: +MAGN400C2 PO
== END ==
LOC: M LABSMTC 11:41
PROVIDERS: ATTEND Anesthesiology
DX: Z01.812 Encounter for preprocedural laboratory examination (principal); Z20.822 Contact with and (suspected) exposure to COVID-19

== ENCOUNTER 2021-12-04 07:31 | Inpatient (IN) | payer BC, OTHER ==
[2021-12-04] VITALS (9 sets, daily range): BP systolic 112–161; BP diastolic 63–98
[~2021-12-04] VITALS: Ht 165.1 cm; Wt 80.4 kg
[2021-12-04] MEDS ORDERED: HOME MED LIST COMPLETE! XX SCH (08:30)
[2021-12-04] MEDS ORDERED: LACTATED RINGER'S 1000 ML IV STA (08:46)
[2021-12-04] MEDS ORDERED: LR 1,000 ML IV SCH ×2 (08:50→11:05)
[2021-12-04] MEDS ORDERED: ceFAZolin SOD 2 GM in IV 1 EA IV ONE (08:50)
[2021-12-04] MEDS ORDERED: BICITRA 30ML SOLN UDC PO ONE (08:50)
[2021-12-04] MEDS: PRENATAL VITAMINS CHEWABLE TABLET PO SCH (09:00)
[2021-12-04 09:13] LABS: HEMATOCRIT 36.2 % (36.0-47.0); MEAN CORPUSCULAR HEMOGLOBIN 29.6 pg (27.0-33.0); MEAN CORPUSCULAR HGB CONC 33.1 g/dl (32.0-36.5); MEAN CORPUSCULAR VOLUME 89.2 fl (80.0-96.0); PLATELET COUNT, AUTOMATED 201 10^3/uL (150-450); RED BLOOD COUNT 4.06 10^6/uL (4.00-5.40)
[2021-12-04] MEDS ORDERED: NALBUPHINE HCL 10 MG/ML AMP (J2300) IV PRN (09:53)
[2021-12-04] MEDS ORDERED: diphenhydrAMINE 50MG/ML VIAL (J1200) IV PRN (09:53)
[2021-12-04] MEDS ORDERED: METOCLOPRAMIDE INJ 10MG/2ML VIAL (J2765 PER 1) IV PRN ×2 (09:53→11:05)
[2021-12-04] MEDS ORDERED: NALOXONE INJ 0.4MG/1ML VIAL (J2310 PER 1MG) IV PRN ×2 (09:53)
[2021-12-04] MEDS ORDERED: ONDANSETRON 4MG/2ML VIAL IV PRN ×2 (09:53→11:05)
[2021-12-04] MEDS ORDERED: MORPHINE PRES-FREE INJ 10 MG/10 ML VIAL As Ordered ONE (10:03)
[2021-12-04] MEDS ORDERED: PHENYLephrine 500MCG 5ML (100MCG/ML) SYRINGE As Ordered ONE (10:03)
[2021-12-04] MEDS ORDERED: OXYTOCIN INJ 10 UNITS/ML VIAL (J2590) As Ordered ONE (10:03)
[2021-12-04] MEDS ORDERED: ONDANSETRON 4MG/2ML VIAL As Ordered ONE (10:23)
[2021-12-04] MEDS ORDERED: dexameTHASONE 4 MG/ML 1ML VIAL (J1100 PER 1MG) As Ordered ONE (10:23)
[2021-12-04] MEDS ORDERED: KETOROLAC 60MG 2ML VIAL As Ordered ONE (10:38)
[2021-12-04] MEDS ORDERED: OXYTOCIN 30 UNITS IN 0.9% NaCl 500ML IV BAG (J2590) As Ordered ONE (10:44)
[2021-12-04] MEDS ORDERED: METOCLOPRAMIDE INJ 10MG/2ML VIAL (J2765 PER 1) As Ordered ONE (10:44)
[2021-12-04] MEDS ORDERED: fentaNYL 100 MCG/2 ML INJECTION IV PRN (11:05)
[2021-12-04] MEDS ORDERED: PERCOCET 5MG/325MG TAB PO PRN (11:05)
[2021-12-04] MEDS ORDERED: OXYTOCIN DRIP 30 UNITS in IV 1 EA IV ONE (11:05)
[2021-12-04] MEDS ORDERED: MEASLES,MUMPS,RUBELLA VACCINE INJ (MMR-II) (90707) SC SCH (13:40)
[2021-12-04] MEDS ORDERED: SIMETHICONE 80MG CHEW TAB PO PRN (13:40)
[2021-12-04] MEDS ORDERED: RHOGAM 300 MCG (1500 IU) INJ (J2790) IM SCH (13:40)
[2021-12-04] MEDS ORDERED: ONDANSETRON 4MG TAB PO PRN (13:40)
[2021-12-04] MEDS: KETOROLAC 30 MG/ML 1ML VIAL IV SCH ×2 (16:38→23:06)
[2021-12-04] MEDS ORDERED: OXYC1TAB23 PO (23:30)
[2021-12-04] MEDS ORDERED: IBUP80TA PO (23:30)
[2021-12-05 02:00] VITALS: BP 113/59
[2021-12-05] MEDS: PERCOCET 5MG/325MG TAB PO PRN ×4 (03:08→19:58)
[2021-12-05] MEDS: KETOROLAC 30 MG/ML 1ML VIAL IV SCH (05:07)
[2021-12-05 06:00] VITALS: BP 132/71
[2021-12-05 07:15] LABS: HEMATOCRIT 28.7 % (36.0-47.0); MEAN CORPUSCULAR HEMOGLOBIN 29.5 pg (27.0-33.0); MEAN CORPUSCULAR HGB CONC 32.8 g/dl (32.0-36.5); PLATELET COUNT, AUTOMATED 170 10^3/uL (150-450); RED BLOOD COUNT 3.19 10^6/uL (4.00-5.40); WHITE BLOOD COUNT 9.6 10^3/uL (4.0-10.0)
[2021-12-05 07:18] LABS: HEMOGLOBIN 9.4 g/dl (12.0-15.5)
[2021-12-05] MEDS: PRENATAL VITAMINS CHEWABLE TABLET PO SCH (08:25)
[2021-12-05] MEDS: DOCUSATE SODIUM 100MG CAPSULE PO SCH ×2 (08:25→20:59)
[2021-12-05 10:00] VITALS: BP 130/77
[2021-12-05] MEDS: IBUPROFEN 800 MG TAB PO SCH ×2 (12:01→20:59)
[2021-12-05 14:00] VITALS: BP 133/86
[2021-12-05 18:00] VITALS: BP 141/84
[2021-12-05 22:00] VITALS: BP 151/94
[2021-12-06 02:00] VITALS: BP 123/74
[2021-12-06] MEDS: PERCOCET 5MG/325MG TAB PO PRN ×2 (02:05→08:14)
[2021-12-06] MEDS: IBUPROFEN 800 MG TAB PO SCH ×2 (05:08→11:58)
[2021-12-06 06:00] VITALS: BP 133/73
[2021-12-06] MEDS: PRENATAL VITAMINS CHEWABLE TABLET PO SCH (08:13)
[2021-12-06] MEDS: DOCUSATE SODIUM 100MG CAPSULE PO SCH (08:13)
[2021-12-06 10:00] VITALS: BP 124/70
== END 2021-12-06 12:30 | disposition home or self-care (01) | DRG 540 ==
LOC: M LDI 07:31 → M OBS 12:35
PROVIDERS: ADMIT Specialist; ATTEND Specialist
PROC: 10D00Z1 Extraction of Products of Conception, Low, Open Approach (ICD-10-PCS; principal; 2021-12-04 09:30)
DX: O34.211 Maternal care for low transverse scar from previous cesarean delivery (principal); Z3A.39 39 weeks gestation of pregnancy; Z37.0 Single live birth

== ENCOUNTER → 2022-11-02 | Outpatient (REF) | payer BC, OTHER ==
[2022-11-02 19:31] LABS: APPEARANCE, URINE CLOUDY (CLEAR); BACTERIA, URINE AUTO NEGATIVE (NEGATIVE); BILIRUBIN, URINE AUTO NEGATIVE (NEGATIVE); BLOOD, URINE BLOOD NEGATIVE (NEGATIVE); COLOR, URINE YELLOW (YELLOW); GLUCOSE, URINE (UA) AUTO NEGATIVE (NEGATIVE); KETONE, URINE AUTO NEGATIVE (NEGATIVE); LEUKOCYTE ESTERASE, URINE AUTO NEGATIVE (NEGATIVE); MUCUS, URINE MODERATE (NEGATIVE); NITRITE, URINE AUTO NEGATIVE (NEGATIVE); PROTEIN, URINE AUTO NEGATIVE (NEGATIVE); RBC, URINE AUTO 0 /HPF (0-3); SPECIFIC GRAVITY URINE AUTO 1.021 (1.002-1.035); SQUAMOUS EPITHELIAL CELL UR AU 21 /HPF (0-6); UROBILINOGEN, URINE AUTO 0.2 mg/dL (0.0-2.0); WBC, URINE AUTO 5 /HPF (0-3)
== END ==
LOC: M SMT 16:41
PROVIDERS: ATTEND Physician Assistant
DX: R30.0 Dysuria (principal)

== ENCOUNTER → 2023-06-17 | Outpatient (CLI) | payer BC, OTHER ==
[2023-06-17 15:51] LABS: HEMATOCRIT 35.9 % (36.0-47.0); HEMOGLOBIN 11.7 g/dl (12.0-15.5); MEAN CORPUSCULAR HEMOGLOBIN 27.7 pg (27.0-33.0); MEAN CORPUSCULAR HGB CONC 32.6 g/dl (32.0-36.5); MEAN CORPUSCULAR VOLUME 85.1 fl (80.0-96.0); PLATELET COUNT, AUTOMATED 237 10^3/uL (150-450); RED BLOOD COUNT 4.22 10^6/uL (4.00-5.40); WHITE BLOOD COUNT 6.2 10^3/uL (4.0-10.0)
[2023-06-17 16:46] LABS: HIV 1&2 SCREEN NEGATIVE (NEGATIVE)
[2023-06-17 16:55] LABS: HEPATITIS C VIRUS ABY INDEX 0.04 INDEX (<0.8)
[2023-06-17 17:37] LABS: GC DNA AMPLIFICATION NEGATIVE (NEGATIVE)
== END ==
LOC: M PLALAB 14:29
PROVIDERS: ATTEND Specialist
DX: Z34.81 Encounter for supervision of other normal pregnancy, first trimester (principal)

== ENCOUNTER → 2023-07-16 | Outpatient (CLI) | payer BC, OTHER | LOC: M PLALAB 16:28 | PROVIDERS: ATTEND Specialist | DX: Z36.9 Encounter for antenatal screening, unspecified (principal) ==

== ENCOUNTER → 2023-08-16 | Outpatient (CLI) | payer BC, OTHER | LOC: M WHC 06:51 | PROVIDERS: ATTEND Specialist | DX: O32.1XX0 Maternal care for breech presentation, not applicable or unspecified (principal); Z3A.20 20 weeks gestation of pregnancy ==

== ENCOUNTER → 2023-09-03 | Outpatient (CLI) | payer BC, OTHER | LOC: M RAD 16:21 | PROVIDERS: ATTEND Specialist | DX: O32.1XX0 Maternal care for breech presentation, not applicable or unspecified (principal); Z3A.22 22 weeks gestation of pregnancy ==

== ENCOUNTER → 2023-10-23 | Outpatient (CLI) | payer BC, OTHER ==
[2023-10-23 09:55] LABS: CHLAMYDIA DNA AMPLIFICATION NEGATIVE (NEGATIVE); GC DNA AMPLIFICATION NEGATIVE (NEGATIVE)
[2023-10-23 10:12] LABS: HEMATOCRIT 30.9 % (36.0-47.0); HEMOGLOBIN 9.7 g/dl (12.0-15.5); MEAN CORPUSCULAR HEMOGLOBIN 26.1 pg (27.0-33.0); MEAN CORPUSCULAR HGB CONC 31.4 g/dl (32.0-36.5); MEAN CORPUSCULAR VOLUME 83.3 fl (80.0-96.0); PLATELET COUNT, AUTOMATED 201 10^3/uL (150-450); RED BLOOD COUNT 3.71 10^6/uL (4.00-5.40); WHITE BLOOD COUNT 8.1 10^3/uL (4.0-10.0)
== END ==
LOC: M LAB 08:08
PROVIDERS: ATTEND Specialist
DX: Z34.82 Encounter for supervision of other normal pregnancy, second trimester (principal)
CPT/HCPCS: 36415; 82950; 85027; 86850; 86900; 86901; 87810; 87850; J2790

== ENCOUNTER 2023-11-01 07:25 | Outpatient (CLI) | payer BC, OTHER ==
[~2023-11-01] VITALS: Ht 165.1 cm; Wt 73.6 kg
[2023-11-01 07:30] VITALS: BP 140/99; O2SAT 99
[2023-11-01] MEDS: IRON SUCROSE 500 MG in NS 250 ML OVER 4 HRS IV ONE (07:54)
[2023-11-01 09:20] VITALS: BP 130/96; O2SAT 97
[2023-11-01 10:00] VITALS: BP 126/88; O2SAT 98
[2023-11-01 11:00] VITALS: BP 130/84; O2SAT 100
[2023-11-01 12:00] VITALS: BP 128/90; O2SAT 100
== END 2023-11-01 11:00 ==
LOC: M INFU 07:25
PROVIDERS: ATTEND Specialist
DX: D64.9 Anemia, unspecified (principal)
CPT/HCPCS: 96365; 96366; J1756

== ENCOUNTER → 2023-11-01 | Outpatient (REF) | payer BC, OTHER ==
[2023-11-01 17:58] LABS: HEMATOCRIT 30.8 % (36.0-47.0); HEMOGLOBIN 9.8 g/dl (12.0-15.5); MEAN CORPUSCULAR HEMOGLOBIN 26.1 pg (27.0-33.0); MEAN CORPUSCULAR HGB CONC 31.8 g/dl (32.0-36.5); MEAN CORPUSCULAR VOLUME 82.1 fl (80.0-96.0); PLATELET COUNT, AUTOMATED 217 10^3/uL (150-450); RED BLOOD COUNT 3.75 10^6/uL (4.00-5.40)
[2023-11-01 18:15] LABS: URIC ACID 4.1 MG/DL (3.1-7.8)
[2023-11-01 18:17] LABS: LDH LACTATE DEHYDROGENASE 211 U/L (120-246)
[2023-11-01 18:18] LABS: ALT/SGPT 13 U/L (7.0-40); AST/SGOT 13 U/L (<34); BILIRUBIN,TOTAL 0.2 MG/DL (0.3-1.2); CREATININE FOR GFR 0.47 MG/DL (0.55-1.30); GLOMERULAR FILTRATION RATE > 60.0 (>60)
[2023-11-01 18:19] LABS: TOTAL PROTEIN,RANDOM URINE 10.8 MG/DL (0.0-14.0)
[2023-11-01 18:26] LABS: CREATININE,RANDOM URINE 103.9 MG/DL
== END ==
LOC: M LABDRAWP 17:02
PROVIDERS: ATTEND Advanced Practice Midwife
DX: O16.9 Unspecified maternal hypertension, unspecified trimester (principal)

== ENCOUNTER → 2023-11-23 | Outpatient (CLI) | payer BC ==
[2023-11-23 18:34] LABS: HEMATOCRIT 35.2 % (36.0-47.0); MEAN CORPUSCULAR HEMOGLOBIN 26.9 pg (27.0-33.0); MEAN CORPUSCULAR HGB CONC 31.3 g/dl (32.0-36.5); MEAN CORPUSCULAR VOLUME 86.1 fl (80.0-96.0); PLATELET COUNT, AUTOMATED 248 10^3/uL (150-450); RED BLOOD COUNT 4.09 10^6/uL (4.00-5.40); WHITE BLOOD COUNT 9.5 10^3/uL (4.0-10.0)
[2023-11-23 18:55] LABS: URIC ACID 4.5 MG/DL (3.1-7.8)
[2023-11-23 18:57] LABS: LDH LACTATE DEHYDROGENASE 182 U/L (120-246)
[2023-11-23 18:58] LABS: ALT/SGPT 16 U/L (7.0-40); AST/SGOT 18 U/L (<34); BILIRUBIN,TOTAL 0.3 MG/DL (0.3-1.2); GLOMERULAR FILTRATION RATE > 60.0 (>60)
[2023-11-23 19:00] LABS: CREATININE,RANDOM URINE 96.1 MG/DL
[2023-11-23 19:01] LABS: TOTAL PROTEIN,RANDOM URINE < 6.0 MG/DL (0.0-14.0)
== END ==
LOC: M PLALAB 16:12
PROVIDERS: ATTEND Specialist
DX: O16.3 Unspecified maternal hypertension, third trimester (principal); Z3A.00 Weeks of gestation of pregnancy not specified

== ENCOUNTER → 2023-11-23 | Outpatient (CLI) | payer BC | LOC: M WHC 06:52 | PROVIDERS: ATTEND Specialist | DX: Z34.83 Encounter for supervision of other normal pregnancy, third trimester (principal); Z3A.34 34 weeks gestation of pregnancy ==

== ENCOUNTER → 2023-11-30 | Outpatient (REF) | payer BC | LOC: M SFHCWAGY 10:00 | PROVIDERS: ATTEND Specialist | DX: Z34.83 Encounter for supervision of other normal pregnancy, third trimester (principal) ==

== ENCOUNTER 2023-12-06 08:45 | Outpatient (CLI) | payer BC ==
[~2023-12-06] VITALS: Ht 165.1 cm; Wt 78.1 kg
[2023-12-06] VITALS (9 sets, daily range): BP systolic 128–163; BP diastolic 86–97
[2023-12-06] MEDS ORDERED: ACET325C5 PO (09:04)
[2023-12-06] MEDS ORDERED: TUMS500C PO (09:04)
[2023-12-06] MEDS: BETAMETHASONE SOLUSPAN 6MG/ML 5ML VIAL IM ONE (09:33)
[2023-12-06 09:36] LABS: HEMATOCRIT 34.1 % (36.0-47.0); HEMOGLOBIN 10.6 g/dl (12.0-15.5); MEAN CORPUSCULAR HEMOGLOBIN 26.6 pg (27.0-33.0); MEAN CORPUSCULAR HGB CONC 31.1 g/dl (32.0-36.5); MEAN CORPUSCULAR VOLUME 85.5 fl (80.0-96.0); PLATELET COUNT, AUTOMATED 196 10^3/uL (150-450); RED BLOOD COUNT 3.99 10^6/uL (4.00-5.40); WHITE BLOOD COUNT 8.2 10^3/uL (4.0-10.0)
[2023-12-06 09:51] LABS: TOTAL PROTEIN,RANDOM URINE 12.5 MG/DL (0.0-14.0)
[2023-12-06 09:56] LABS: CREATININE,RANDOM URINE 73.6 MG/DL
[2023-12-06 10:06] LABS: URIC ACID 4.6 MG/DL (3.1-7.8)
[2023-12-06 10:08] LABS: LDH LACTATE DEHYDROGENASE 173 U/L (120-246)
[2023-12-06 10:09] LABS: ALT/SGPT 13 U/L (7.0-40); AST/SGOT 12 U/L (<34); BILIRUBIN,TOTAL 0.3 MG/DL (0.3-1.2); CREATININE FOR GFR 0.46 MG/DL (0.55-1.30); GLOMERULAR FILTRATION RATE > 60.0 (>60)
[2023-12-08] MEDS ORDERED: CHEL100T4 PO (08:00)
== END 2023-12-06 10:40 | disposition home or self-care (01) ==
LOC: M LDO 08:45
PROVIDERS: ATTEND Advanced Practice Midwife
DX: O13.3 Gestational [pregnancy-induced] hypertension without significant proteinuria, third trimester (principal); O34.219 Maternal care for unspecified type scar from previous cesarean delivery; Z3A.35 35 weeks gestation of pregnancy
CPT/HCPCS: 36415; 82247; 82570; 83615; 84156; 84450; 84460; 84550; 85027; 96372; G0463; J0702

== ENCOUNTER 2023-12-07 09:02 | Outpatient (CLI) | payer BC ==
[~2023-12-07] VITALS: Ht 165.1 cm; Wt 78.8 kg
[~2023-12-07 09:02] MED LIST changes: +ACET325C5 PO; +TUMS500C PO
[2023-12-07 09:11] VITALS: BP 155/96
[2023-12-07] MEDS ORDERED: HOME MED LIST COMPLETE! XX SCH (09:20)
[2023-12-07 09:22] VITALS: BP 137/96
[2023-12-07] MEDS: BETAMETHASONE SOLUSPAN 6MG/ML 5ML VIAL IM ONE (09:34)
[2023-12-08] MEDS ORDERED: CHEL100T4 PO (08:00)
== END 2023-12-07 10:32 | disposition home or self-care (01) ==
LOC: M LDO 09:02
PROVIDERS: ATTEND Specialist
DX: O13.3 Gestational [pregnancy-induced] hypertension without significant proteinuria, third trimester (principal); Z3A.35 35 weeks gestation of pregnancy
CPT/HCPCS: 59025; 96372; G0463; J0702

== ENCOUNTER 2023-12-08 19:24 | Outpatient (CLI) | payer BC ==
[~2023-12-08] VITALS: Ht 165.1 cm; Wt 80.0 kg
[~2023-12-08 19:24] MED LIST changes: +CHEL100T4 PO
[2023-12-08 19:49] VITALS: BP 132/86
[2023-12-08] MEDS ORDERED: HOME MED LIST COMPLETE! XX SCH (19:55)
== END 2023-12-08 20:27 ==
LOC: M LDO 19:24 → EDSTATUS 12-09 12:58
PROVIDERS: ATTEND Advanced Practice Midwife
DX: O47.03 False labor before 37 completed weeks of gestation, third trimester (principal); Z3A.36 36 weeks gestation of pregnancy; O13.3 Gestational [pregnancy-induced] hypertension without significant proteinuria, third trimester; O34.219 Maternal care for unspecified type scar from previous cesarean delivery
CPT/HCPCS: 59025; G0463

== ENCOUNTER 2023-12-10 05:05 | Inpatient (IN) | payer BC ==
[~2023-12-10] VITALS: Ht 165.1 cm; Wt 78.1 kg
[2023-12-10] VITALS (7 sets, daily range): BP systolic 127–141; BP diastolic 72–96; TEMP 97.2; O2SAT 97–98
[2023-12-10] MEDS ORDERED: LR 1,000 ML IV SCH (05:15)
[2023-12-10] MEDS: LACTATED RINGER'S 1000 ML IV STA (05:15)
[2023-12-10] MEDS ORDERED: HOME MED LIST COMPLETE! XX SCH (05:45)
[2023-12-10 06:00] LABS: HEMATOCRIT 33.6 % (36.0-47.0); HEMOGLOBIN 10.6 g/dl (12.0-15.5); MEAN CORPUSCULAR HGB CONC 31.5 g/dl (32.0-36.5); MEAN CORPUSCULAR VOLUME 82.4 fl (80.0-96.0); PLATELET COUNT, AUTOMATED 264 10^3/uL (150-450); RED BLOOD COUNT 4.08 10^6/uL (4.00-5.40); WHITE BLOOD COUNT 9.8 10^3/uL (4.0-10.0)
[2023-12-10] MEDS: BICITRA 30ML SOLN UDC PO ONE (07:26)
[2023-12-10] MEDS: ceFAZolin SOD 2 GM in IV 1 EA IV ONE (07:26)
[2023-12-10] MEDS ORDERED: PHENYLephrine 500MCG 5ML (100MCG/ML) SYRINGE As Ordered ONE (07:49)
[2023-12-10] MEDS ORDERED: MORPHINE PRES-FREE INJ 10 MG/10 ML VIAL As Ordered ONE (07:49)
[2023-12-10] MEDS ORDERED: ONDANSETRON 4MG 2ML VIAL As Ordered ONE (07:49)
[2023-12-10] MEDS ORDERED: fentaNYL 100 MCG/2 ML INJECTION As Ordered ONE (07:49)
[2023-12-10] MEDS ORDERED: OXYTOCIN INJ 10UNITS/ML 1ML VIAL As Ordered ONE (07:49)
[2023-12-10] MEDS ORDERED: METOCLOPRAMIDE INJ 10MG/2ML VIAL As Ordered ONE (07:53)
[2023-12-10 08:11] LABS: CORD GAS ABE V -5.4; CORD GAS HCO3 V 22.4 MMOL/L; CORD GAS O2 SAT V 69.5 %; CORD GAS PCO2 V 51.9 mmHg; CORD GAS PH V 7.252 UNITS; CORD GAS PO2 V 31.4 mmHg; CORD GAS SBC V 19.4 MMOL/L; CORD GAS TCO2 V 23.9 MMOL/L
[2023-12-10] MEDS ORDERED: KETOROLAC 60MG 2ML VIAL As Ordered ONE (08:17)
[2023-12-10] MEDS ORDERED: MEPERIDINE 50 MG/ML 1ML VIAL As Ordered ONE (08:31)
[2023-12-10] MEDS ORDERED: dexmedeTOMIDine (4MCG/ML)200MCG/50ML BTL (PRECEDEX) As Ordered ONE (08:33)
[2023-12-10] MEDS ORDERED: PERCOCET 5MG/325MG TAB PO PRN (09:10)
[2023-12-10] MEDS ORDERED: RHOGAM 300MCG (1500IU) INJ IM SCH (09:10)
[2023-12-10] MEDS ORDERED: SIMETHICONE 80MG CHEW TAB PO PRN (09:10)
[2023-12-10] MEDS ORDERED: METOCLOPRAMIDE INJ 10MG/2ML VIAL IV PRN (09:20)
[2023-12-10] MEDS ORDERED: ONDANSETRON 4MG 2ML VIAL IV PRN (09:20)
[2023-12-10] MEDS ORDERED: NALOXONE INJ 0.4MG/1ML VIAL IV PRN ×2 (09:20)
[2023-12-10] MEDS ORDERED: diphenhydrAMINE 50MG/ML VIAL IV PRN (09:20)
[2023-12-10] MEDS ORDERED: fentaNYL 100 MCG/2 ML INJECTION IV PRN (09:20)
[2023-12-10] MEDS: SLF 3 ML SYR IV SCH (09:20)
[2023-12-10] MEDS ORDERED: oxyCODONE 5MG TAB PO PRN (09:20)
[2023-12-10] MEDS ORDERED: **NOTE PATIENT COMMENT** MISC XX SCH (09:20)
[2023-12-10] MEDS ORDERED: OXYTOCIN 30UNITS IN 0.9% NaCl 500ML IV BAG As Ordered ONE (09:32)
[2023-12-10] MEDS: LR 1,000 ML IV SCH (09:34)
[2023-12-10] MEDS: OXYTOCIN DRIP 30 UNITS in IV 1 EA IV SCH (09:34)
[2023-12-10] MEDS: KETOROLAC 30 MG/ML 1ML VIAL IV SCH (13:36)
[2023-12-10] MEDS ORDERED: COLA100C5 PO (16:14)
[2023-12-10] MEDS: PERCOCET 5MG/325MG TAB PO PRN (17:38)
[2023-12-10] MEDS: DOCUSATE SODIUM 100MG CAPSULE PO PRN (20:14)
[2023-12-10] MEDS: PRENATAL VITAMINS CHEWABLE TABLET PO SCH (20:14)
[2023-12-11 02:11] VITALS: BP 112/61; O2SAT 100
[2023-12-11 06:02] VITALS: BP 122/72; O2SAT 98
[2023-12-11 09:41] LABS: HEMOGLOBIN 7.9 g/dl (12.0-15.5); MEAN CORPUSCULAR HEMOGLOBIN 25.8 pg (27.0-33.0); MEAN CORPUSCULAR HGB CONC 30.4 g/dl (32.0-36.5); RED BLOOD COUNT 3.06 10^6/uL (4.00-5.40); WHITE BLOOD COUNT 10.1 10^3/uL (4.0-10.0)
[2023-12-11 09:48] VITALS: BP 130/81; O2SAT 98
[2023-12-11] MEDS ORDERED: PERC5TAB12 PO (09:51)
[2023-12-11 10:29] LABS: PLATELET COUNT, AUTOMATED 216 10^3/uL (150-450)
[2023-12-11] MEDS: IBUPROFEN 800 MG TAB PO SCH (11:25)
[2023-12-11 14:00] VITALS: BP 123/72; O2SAT 98
[2023-12-11 18:00] VITALS: BP 131/83; O2SAT 98
[2023-12-11 22:00] VITALS: BP 146/85; O2SAT 97
[2023-12-12] VITALS (9 sets, daily range): BP systolic 125–158; BP diastolic 77–97; O2SAT 96–99
[2023-12-12] MEDS: IBUPROFEN 800 MG TAB PO SCH (04:21)
[2023-12-12] MEDS: MEASLES,MUMPS,RUBELLA VACCINE INJ (MMR-II) SC.IMMUN ONE (07:02)
[2023-12-12 10:21] LABS: HEMATOCRIT 25.4 % (36.0-47.0); HEMOGLOBIN 7.9 g/dl (12.0-15.5); MEAN CORPUSCULAR HEMOGLOBIN 26.3 pg (27.0-33.0); MEAN CORPUSCULAR HGB CONC 31.1 g/dl (32.0-36.5); MEAN CORPUSCULAR VOLUME 84.7 fl (80.0-96.0); PLATELET COUNT, AUTOMATED 232 10^3/uL (150-450); WHITE BLOOD COUNT 9.8 10^3/uL (4.0-10.0)
[2023-12-12 10:39] LABS: URIC ACID 4.6 MG/DL (3.1-7.8)
[2023-12-12 10:41] LABS: LDH LACTATE DEHYDROGENASE 187 U/L (120-246)
[2023-12-12 10:43] LABS: ALBUMIN 1.8 G/DL (3.2-5.2); ALKALINE PHOSPHATASE 81 U/L (46-116); ALT/SGPT 14 U/L (7.0-40); AST/SGOT 13 U/L (<34); BILIRUBIN,TOTAL 0.2 MG/DL (0.3-1.2); BLOOD UREA NITROGEN 6 MG/DL (9-23); CALCIUM LEVEL 8.2 MG/DL (8.5-10.1); CARBON DIOXIDE LEVEL 25 MMOL/L (20-31); CHLORIDE LEVEL 109 MMOL/L (98-107); CREATININE FOR GFR 0.42 MG/DL (0.55-1.30); GLOMERULAR FILTRATION RATE > 60.0 (>60); GLUCOSE, FASTING 109 MG/DL (60-100); POTASSIUM SERUM 3.5 MMOL/L (3.5-5.1); SODIUM LEVEL 139 MMOL/L (136-145); TOTAL PROTEIN 4.8 G/DL (5.7-8.2)
[2023-12-12 10:49] LABS: TOTAL PROTEIN,RANDOM URINE 20.7 MG/DL (0.0-14.0)
[2023-12-12 10:54] LABS: CREATININE,RANDOM URINE 59.6 MG/DL
[2023-12-12] MEDS: LABETALOL 100MG TAB PO SCH (12:19)
[2023-12-12] MEDS: DIBUCAINE 1% OINTMENT 30GM TOP PRN (17:27)
[2023-12-12] MEDS: ANUSOL HC CREAM 30GM TOP PRN (17:28)
[2023-12-13 02:00] VITALS: BP 156/95; O2SAT 97
[2023-12-13 02:15] VITALS: BP 138/88
[2023-12-13 06:00] VITALS: BP 141/97; O2SAT 98
[2023-12-13 08:36] VITALS: BP 131/92
[2023-12-13] MEDS ORDERED: LABE100T6 PO ×2 (09:51→11:07)
[2023-12-13 10:00] VITALS: BP 135/85; O2SAT 97
== END 2023-12-13 11:45 | disposition home or self-care (01) | DRG 540 ==
LOC: M LDI 05:05 → M OBS 10:26
PROVIDERS: ADMIT Specialist; ATTEND Specialist
PROC: 0UB70ZZ Excision of Bilateral Fallopian Tubes, Open Approach (ICD-10-PCS; 2023-12-10)
PROC: 10D00Z1 Extraction of Products of Conception, Low, Open Approach (ICD-10-PCS; principal; 2023-12-10 07:30)
DX: O13.4 Gestational [pregnancy-induced] hypertension without significant proteinuria, complicating childbirth (principal); Z30.2 Encounter for sterilization; O34.211 Maternal care for low transverse scar from previous cesarean delivery; Z37.0 Single live birth; Z3A.36 36 weeks gestation of pregnancy

== ENCOUNTER → 2024-06-26 | Outpatient (REF) | payer OTHER ==
[~2024-06-26] MED LIST changes: +LABE100T6 PO; +ONDA-282 PO; -ONDA4TAB6 PO; +PERC5TAB12 PO
== END ==
LOC: M SFHCWAGY 13:00
PROVIDERS: ATTEND Specialist
DX: Z01.419 Encounter for gynecological examination (general) (routine) without abnormal findings (principal)